=== PATIENT | male | born 1960 | race Caucasian/White ===

== ENCOUNTER 2020-02-29 16:49 | Emergency (ER) | payer BC, OTHER ==
[~2020-02-29 16:49] MED LIST: HYDR-3455 PO; SULF1TAB35 PO
[2020-02-29] MEDS ORDERED: NS IV 1000 ML 1,000 ML IV SCH (16:59)
[2020-02-29] MEDS ORDERED: DIATRIZOATE MEGLUM/SODIUM 37% 120 ML (GASTROGRAFIN) PO ONE (17:00)
[2020-02-29 17:13] LABS: BILIRUBIN,URINE NEGATIVE (NEGATIVE); CLARITY,URINE CLEAR; COLOR,URINE YELLOW; GLUCOSE, URINE (UA) NEGATIVE (NEGATIVE); KETONES,URINE NEGATIVE (NEGATIVE); LEUKOCYTE ESTERASE ,URINE NEGATIVE (NEGATIVE); NITRITE,URINE NEGATIVE (NEGATIVE); PROTEIN,URINE TRACE (NEGATIVE)
[2020-02-29] MEDS ORDERED: fentaNYL INJECTION 100 MCG/2 ML AMP IVP STA (17:19)
[2020-02-29 17:20] LABS: BACTERIA,URINE NEGATIVE /HPF; RBC,URINE RARE /HPF
--- NOTE | 2020-02-29 18:11 | ED Abdominal Pain ---
General Stated Complaint: ABD PAIN History of Present Illness Date Seen by Provider: February 29, 2020 Time Seen by Provider: 17:00 Initial Comments 59-year-old male presents for abdominal pain that began yesterday afternoon. He states he ate breakfast yesterday and then became nauseated having abdominal pain. He did have a bowel movement yesterday morning. He denies passing any additional stool or flatus since then. His stomach has become distended. He saw his primary care provider who was concerned about a bowel obstruction. He denies any history of bowel obstructions or chronic abdominal problems. He has had an umbilical hernia repair, otherwise no abdominal surgeries. He denies any nausea at this time. He has had nothing to eat or drink today. 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 Timing/Duration: 1-2 Days Severity/Quality: Moderate Location: Generalized Abdomen Radiation: No Radiation Associated Symptoms: Denies Symptoms Allergies and Home Medications Allergies Coded Allergies: Penicillins (Verified Allergy, Unknown, HIVES AND TONGUE SWELLED, 07/12/15) Home Medications Ciprofloxacin HCl 500 Mg Tablet, 500 MG PO BID Prescribed by: DHRUV MENDOZA on 02/29/202021 Hydrocodone/Acetaminophen 1 Each Tablet, 1-2 EACH PO PRN Prescribed by: NATI FERNANDEZ on 07/29/15 1041 Metronidazole 500 Mg Tablet, 500 MG PO BID Prescribed by: DHRUV MENDOZA on 02/29/202021 Patient Home Medication List Home Medication List Reviewed: Yes Review of Systems Review of Systems Constitutional: no symptoms reported, see HPI Gastrointestinal: See HPI, Abdomen Distended, Abdominal Pain, Constipated, Poor Appetite, Poor Fluid Intake All Other Systems Reviewed Negative Unless Noted: Yes Past Ggdvfll-Vfogjr-Yvhpcs Hx Past Med/Social Hx: Reviewed Nursing Past Med/Soc Hx Patient Social History Recent Foreign Travel: No Contact w/Someone Who Travel: No Past Medical History Asthma Physical Exam Vital Signs Vital Signs - First Documented 02/29/20 18:26 Temp 36.8 Pulse 77 Resp 16 B/P (MAP) 156/96 (116) Pulse Ox 94 O2 Delivery Room Air Capillary Refill : Height/Weight/BMI Height: 5'11.00" Weight: 201lbs. oz. 91.895348nn; BMI Method: General Appearance: WD/WN, mild distress (secondary to pain) Neck: non-tender, full range of motion, supple, normal inspection Respiratory: chest non-tender, lungs clear, normal breath sounds, other (abdominal pain with deep inspiration) Cardiovascular: normal peripheral pulses, regular rate, rhythm, no edema, no murmur Gastrointestinal: abnormal bowel sounds (Hypoactive to absent BS), distended (firm); No rebound; tenderness; No hernia, No mass; other (Healed umbilical incision. Tympany with percussion) Extremities: normal range of motion, non-tender, normal inspection Neurologic/Psychiatric: no motor/sensory deficits, alert, normal mood/affect, oriented x 3 Skin: normal color, warm/dry Progress/Results/Core Measures Results/Orders Lab Results Laboratory Tests Test 02/29/20 17:07 02/29/20 18:05 Range/Units Urine Color YELLOW Urine Clarity CLEAR Urine pH 6.0 5-9 Urine Specific [place] 1.025 H 1.016-1.022 Urine Protein TRACE H NEGATIVE Urine Glucose (UA) NEGATIVE NEGATIVE Urine Ketones NEGATIVE NEGATIVE Urine Nitrite NEGATIVE NEGATIVE Urine Bilirubin NEGATIVE NEGATIVE Urine Urobilinogen 0.2 < = 1.0 MG/DL Urine Leukocyte Esterase NEGATIVE NEGATIVE Urine RBC (Auto) TRACE-I NEGATIVE Urine RBC RARE /HPF Urine WBC NONE /HPF Urine Squamous Epithelial Cells NONE /HPF Urine Crystals NONE /LPF Urine Bacteria NEGATIVE /HPF Urine Casts NONE /LPF Urine Mucus SMALL H /LPF Urine Culture Indicated NO White Blood Count 15.7 H 4.3-11.0 10^3/uL Red Blood Count 4.89 4.35-5.85 10^6/uL Hemoglobin 15.8 13.3-17.7 G/DL Hematocrit 45 40-54 % Mean Corpuscular Volume 92 80-99 FL Mean Corpuscular Hemoglobin 32 25-34 PG Mean Corpuscular Hemoglobin Concent 35 32-36 G/DL Red Cell Distribution Width 12.7 10.0-14.5 % Platelet Count 292 130-400 10^3/uL Mean Platelet Volume 10.1 7.4-10.4 FL Neutrophils (%) (Auto) 81 H 42-75 % Lymphocytes (%) (Auto) 8 L 12-44 % Monocytes (%) (Auto) 11 0-12 % Eosinophils (%) (Auto) 0 0-10 % Basophils (%) (Auto) 0 0-10 % Neutrophils # (Auto) 12.7 H 1.8-7.8 X 10^3 Lymphocytes # (Auto) 1.2 1.0-4.0 X 10^3 Monocytes # (Auto) 1.8 H 0.0-1.0 X 10^3 Eosinophils # (Auto) 0.0 0.0-0.3 10^3/uL Basophils # (Auto) 0.0 0.0-0.1 10^3/uL Neutrophils % (Manual) 87 % Lymphocytes % (Manual) 9 % Monocytes % (Manual) 3 % Eosinophils % (Manual) 1 % Basophils % (Manual) 0 % Band Neutrophils 0 % Blood Morphology Comment NORMAL Prothrombin Time 13.2 12.2-14.7 SEC INR Comment 1.0 0.8-1.4 Activated Partial Thromboplast Time 30 24-35 SEC Sodium Level 133 L 135-145 MMOL/L Potassium Level 3.9 3.6-5.0 MMOL/L Chloride Level 97 L 98-107 MMOL/L Carbon Dioxide Level 24 21-32 MMOL/L Anion Gap 12 5-14 MMOL/L Blood Urea Nitrogen 10 7-18 MG/DL Creatinine 0.96 0.60-1.30 MG/DL Estimat Glomerular Filtration Rate > 60 BUN/Creatinine Ratio 10 Glucose Level 117 H 70-105 MG/DL Calcium Level 10.1 8.5-10.1 MG/DL Corrected Calcium 9.7 8.5-10.1 MG/DL Magnesium Level 1.9 1.6-2.4 MG/DL Total Bilirubin 0.9 0.1-1.0 MG/DL Aspartate Amino Transf (AST/SGOT) 15 5-34 U/L Alanine Aminotransferase (ALT/SGPT) 34 0-55 U/L Alkaline Phosphatase 68 40-136 U/L C-Reactive Protein High Sensitivity 14.66 H 0.00-0.50 MG/DL Total Protein 8.7 H 6.4-8.2 GM/DL Albumin 4.5 3.2-4.5 GM/DL Lipase 406 H 8-78 U/L My Orders Orders - DHRUV MENDOZA SUPPLY CHAIN ASSISTANT Fentanyl Injection (Sublimaze Injection (02/29/20 17:19) Iohexol Injection (Omnipaque 350 Mg/Ml 1 (02/29/20 18:30) Received Contrast (Hold Metformin- Contr (02/29/20 18:30) Ns (Ivpb) (Sodium Chloride 0.9% Ivpb Bag (02/29/20 18:30) Ciprofloxacin Tablet (Cipro Tablet) (02/29/20 20:12) Metronidazole 500mg/100ml Ivpb (Flagyl 5 (02/29/20 20:15) Ketorolac Injection (Toradol Injection) (02/29/20 20:26) Magnesium Hydroxide Oral Susp (Mom Oral (02/29/20 20:30) Docusate Sodium Capsule (Colace Capsule) (02/29/20 20:33) Rx-Hydrocodone/Apap 5-325 Mg (Rx-Vicodin (02/29/20 20:45) Medications Given in ED Current Medications Medications Dose Ordered Sig/[place] Route Start Time Stop Time Status Last Admin Dose Admin Acetaminophen/ Hydrocodone Bitart 1 ea Q6H PRN PO 02/29/20 20:45 02/29/20 20:48 1 EA Diatrizoate Meglum/ Diatrizoate Sod 120 ml ONCE ONCE PO 02/29/20 17:00 02/29/20 17:02 DC 02/29/20 19:29 20 ML Iohexol 100 ml ONCE ONCE IV 02/29/20 18:30 02/29/20 18:47 DC 02/29/20 19:29 100 ML Magnesium Hydroxide 30 ml ONCE ONCE PO 02/29/20 20:30 02/29/20 20:31 DC 02/29/20 20:48 30 ML Metronidazole 100 ml @ 100 mls/hr ONCE ONCE IV 02/29/20 20:15 02/29/20 21:14 02/29/20 20:20 100 MLS/HR Sodium Chloride 100 ml ONCE ONCE IV 02/29/20 18:30 02/29/20 18:47 DC 02/29/20 19:29 100 ML Vital Signs/I&O 02/29/20 18:26 Temp 36.8 Pulse 77 Resp 16 B/P (MAP) 156/96 (116) Pulse Ox 94 O2 Delivery Room Air Progress Progress Note : Time: 17:00 Progress Note Patient seen and evaluated, will obtain labs and normal saline 1 L per IV, fentanyl 25 g IV for pain and CT abdomen and pelvis with oral contrast. 1750 patient repeat reports the pain is improved. No requests at this time, will have to wait until [address], as he just finished oral contrast. 1830 continues to report pain has improved. Ambulating in room, no requests at this time. [address] results reviewed by myself and Dr. Chatman. Awaiting radiologist's review. 1944 CT results discussed with the patient, he reports passing flatus. Will try ice chips. Will give Cipro by mouth and Flagyl IV for diverticulitis. 2029 patient taking ice chips, no nausea or vomiting. Continues to report less pain in the abdomen. 2099 discharge instructions and return precautions reviewed with the patient. Diagnostic Imaging Diagonstic Imaging: CT Plain Films/CT/US/NM/MRI: abdomen Comments NAME: GUNJAN DUGAN MED REC#: [id number] PT STATUS: REG ER : 1960 PHYSICIAN: ROSE SANCHEZ MD ADMIT DATE: 02/29/20/ER Draft Date of Exam:02/29/20 CT ABDOMEN/PELVIS W PROCEDURE: CT abdomen and pelvis with contrast. TECHNIQUE: Multiple contiguous axial images were obtained through the abdomen and pelvis after administration of intravenous contrast. Auto Exposure Controls were utilized during the CT exam to meet ALARA standards for radiation dose reduction. INDICATION: Abdominal pain. FINDINGS: There is minimal basilar atelectasis at the right lung base. Lung bases otherwise clear. Liver demonstrates low-density compatible with steatosis with a small transient perfusion differences in the inferior right hepatic lobe. There is no hepatic mass or focal abnormality. The portal veins are patent. The gallbladder is nondistended without radiodense gallstones or evidence of biliary dilatation. The spleen demonstrates no focal abnormality. There is no adrenal mass. The kidneys enhance normally and appear nonobstructed. There is abnormal inflammation and stranding demonstrated about the tail of the pancreas. Consider correlation with lipase. This is also however immediately adjacent to the splenic flexure of the colon where there are several small diverticula. This could conceivably reflect minimal diverticulitis. There are no findings of bowel obstruction. Remainder of the colon demonstrates a few uncomplicated diverticula within the sigmoid colon. The appendix is normal. There are no findings of abscess. There is no free fluid. There is no free air. There is no abnormal adenopathy. The urinary bladder is unremarkable. There is fat-containing right inguinal hernia. Aorta normal in caliber. No acute or suspicious osseous abnormality. IMPRESSION: 1. Focal abnormal inflammatory fat stranding is demonstrated within the left upper quadrant, it is along the tail of the pancreas and immediately adjacent to the splenic flexure of the colon where there are a few diverticula. Considerations would include either distal pancreatic tail pancreatitis or possibly mild diverticulitis. 2. The left kidney is nonobstructed and enhances normally. 3. Uncomplicated sigmoid diverticulosis. There is no bowel obstruction. The appendix is normal. 4. No free air, free fluid or abscess. 5. Fat-containing right inguinal hernia. Dictated on workstation # [id number] Dict: 02/29/201937 Trans: 02/29/202006 [facility] [id number] Interpreted by: MARIANGEL LARA MD Electronically signed by: Reviewed: Reviewed by Me, Reviewed/Discussed (with Dr. Chatman) Departure Impression Primary Impression: Pancreatitis Qualified Codes: K85.90 - Acute pancreatitis without necrosis or infection, unspecified Additional Impressions: Diverticulitis of intestine Qualified Codes: K57.32 - Diverticulitis of large intestine without perforation or abscess without bleeding Abdominal pain Qualified Codes: R10.84 - Generalized abdominal pain Disposition: HOME, SELF-CARE Condition: Stable Departure-Patient Inst. Decision time for Depature: 20:15 Referrals: JACK ALVARADO WILLIAM J DO (PCP/Family) Primary Care Physician Patient Instructions: Diverticulitis (DC), Pancreatitis (DC) Add. Discharge Instructions: Clear liquid diet for next 24-48 hours. Use stool softener, one daily. Increase water intake in diet. Take medications, as prescribed. Follow up with Dr. Gonzales, if symptoms are not improving or worsen. Call Dr. Alvarado for follow up and colonoscopy if greater than 5 years, since last one. Return to Emergency Dept for increased abdominal pain, fever greater than 101, new, urgent concerns. Scripts Ciprofloxacin HCl (Ciprofloxacin HCl) 500 Mg Tablet 500 MG PO BID, #14 TAB 0 Refills Prov: DHRUV MENDOZA 02/29/20 Metronidazole (Flagyl) 500 Mg Tablet 500 MG PO BID, #14 TAB 0 Refills Prov: DHRUV MENDOZA 02/29/20 Work/School Note: Work Release Form Date Seen in the Emergency Department: February 29, 2020 Return to Work: March 03, 2020 Restrictions: No Restrictions Copy Copies To 1: NIRAV GONZALES DO Copies To 2: JACK ALVARADO DO DHRUV MENDOZA February 29, 2020 18:11
[2020-02-29 18:12] LABS: BASOPHILS % (AUTO) 0 % (0-10); EOSINOPHILS % (AUTO) 0 % (0-10); HEMATOCRIT 45 % (40-54); HEMOGLOBIN 15.8 G/DL (13.3-17.7); LYMPHOCYTES # (AUTO) 1.2 X 10^3 (1.0-4.0); LYMPHOCYTES % (AUTO) 8 % (12-44); MEAN CORPUSCULAR HEMOGLOBIN 32 PG (25-34); MEAN CORPUSCULAR HGB CONC 35 G/DL (32-36); MEAN CORPUSCULAR VOLUME 92 FL (80-99); MEAN PLATELET VOLUME 10.1 FL (7.4-10.4); MONOCYTES # (AUTO) 1.8 X 10^3 (0.0-1.0); MONOCYTES % (AUTO) 11 % (0-12); NEUTROPHILS # (AUTO) 12.7 X 10^3 (1.8-7.8); NEUTROPHILS % (AUTO) 81 % (42-75); PLATELET COUNT 292 10^3/uL (130-400); RED CELL DISTRIBUTION WIDTH 12.7 % (10.0-14.5); WHITE BLOOD COUNT 15.7 10^3/uL (4.3-11.0)
[2020-02-29 18:23] LABS: ALBUMIN 4.5 GM/DL (3.2-4.5); CHLORIDE 97 MMOL/L (98-107); POTASSIUM 3.9 MMOL/L (3.6-5.0); SODIUM 133 MMOL/L (135-145)
[2020-02-29 18:24] LABS: CALCIUM 10.1 MG/DL (8.5-10.1)
[2020-02-29 18:25] LABS: GLUCOSE 117 MG/DL (70-105); TOTAL PROTEIN 8.7 GM/DL (6.4-8.2)
[2020-02-29 18:26] LABS: CARBON DIOXIDE 24 MMOL/L (21-32); PROTHROMBIN TIME PATIENT 13.2 SEC (12.2-14.7)
[2020-02-29 18:27] LABS: BILIRUBIN,TOTAL 0.9 MG/DL (0.1-1.0)
[2020-02-29 18:29] LABS: ALKALINE PHOSPHATASE 68 U/L (40-136); CREATININE SERUM 0.96 MG/DL (0.60-1.30); GFR ESTIMATED > 60
[2020-02-29 18:30] LABS: BAND NEUTROPHILS 0 %; BASOPHILS % (MANUAL) 0 %; BUN/CREATININE RATIO 10; EOSINOPHILS % (MANUAL) 1 %; LYMPHOCYTES % (MANUAL) 9 %; MONOCYTES % (MANUAL) 3 %; NEUTROPHILS % (MANUAL) 87 %; RBC MORPH NORMAL
[2020-02-29] MEDS ORDERED: IOHEXOL 350 MG/ML 100 ML (OMNIPAQUE 350) VIAL IV ONE (18:30)
[2020-02-29] MEDS ORDERED: NS 100 ML (IVPB) BAG IV ONE (18:30)
[2020-02-29] MEDS ORDERED: HOLD METFORMIN - RECEIVED CONTRAST 20 ML VIAL IV SCH (18:30)
[2020-02-29 18:32] LABS: ALANINE AMINOTRANSFERASE 34 U/L (0-55); MAGNESIUM 1.9 MG/DL (1.6-2.4)
[2020-02-29 18:33] LABS: LIPASE 406 U/L (8-78)
--- OUTSIDE RECORDS SUMMARY | 2020-02-29 18:36 | XMS REPORT ---
Author Author Cliff KRUSE Organization [facility] Address [address] [place] [address] Care Team Providers Care Coverage Specialist Name Role Phone TIFFANIE KRUSE Unavailable PROBLEMS Type Condition ICD9-CM Code CIJ56-BG Code Onset Dates Condition S tatus SNOMED Code Problem Inguinal hernia without ment ion of obstruction or gangrene, unilateral or unspecified, (not specified as recurrent) 550.90 Active 036050953 Problem Dysfunction of Eustachian tube 381.81 Active 95329938 Problem Other specified examination V72.85 Ac tive 937698060 Problem Need for prophylactic vaccination and inoculation, Influen za V04.81 Active 426105033 Problem Elevated blood pressure reading without diagnosi s of hypertension 796.2 Active [id number] ALLERGIES No Information ENCOUNTERS Encounter Location Date Diagnosis [facility] [address] [facility] [id number] [address] [place] [phone] Jan, [facility] [address] [facility] [id number] [address] [place] [phone] Jan, [facility] [address] [facility] [id number] [address] [place] [phone] Oct, [facility] [address] [facility] [id number] [address] [place] [phone] Oct, [facility] [address] [facility] [id number] [address] [place] [phone] Aug, [facility] [address] [facility] [id number] [address] [place] [phone] Jul, [facility] [address] [facility] [id number] [address] [place] [phone] Jul, [facility] [address] [facility] [id number] [address] [place] [phone] Jul, [facility] [address] [facility] [id number] [address] [place] [phone] Jun, [facility] [address] [facility] [id number] [address] [place] [phone] Jun, [facility] [address] [facility] [id number] [address] [place] [phone] Apr, [facility] [address] [facility] [id number] [address] [place] [phone] Apr, [facility] [address] [facility] [id number] [address] [place] [phone] Jul, IMMUNIZATIONS No Known Immunizations SOCIAL HISTORY Never Assessed REASON FOR VISIT PLAN OF CARE VITAL SIGNS MEDICATIONS Unknown Medications RESULTS No Results PROCEDURES No Known procedures INSTRUCTIONS MEDICATIONS ADMINISTERED No Known Medications
--- OUTSIDE RECORDS SUMMARY | 2020-02-29 18:36 | XMS REPORT ---
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 [employer] [facility] Address [address] [address] Care Team Providers Care Sales Engagement Executive Name Role Phone Unavailable Unavailable Unavailable Unavailable Allergies No Information Medications No Information Problems No Information Procedures No Information Immunizations No Information Results Test Name Value Interpretation Reference Range Date Time Fa cility (Normalized) (Normalized) (Medline Reference) laboratory on 2020-02-29 Bacteria LM Ql Negative (no code) 02-29-2020 PENDING LOC ATION (Urine sed) 13:07-0400 [facility] (19997) Bilirubin Ql (U) Negative (no code) 02-29-2020 PENDING L OCATION 13:07-0400 [facility] (42019) Casts LM Ql NONE (no code) 02-29-2020 PENDING LOCATI ON (Urine sed) 13:07-0400 [facility] (01063) Clarity (U) CLEAR (no code) 02-29-2020 PENDING LOCATI ON 13:07-0400 [facility] (82945) Color (U) YELLOW (no code) 02-29-2020 PENDING LOCATI ON 13:07-0400 [facility] (28806) Crystals LM Ql NONE (no code) 02-29-2020 PENDING LOC ATION (Urine sed) 13:07-0400 [facility] (45740) Epithelial NONE (no code) 02-29-2020 PENDING LOCATI ON cells.squamous 13:07-0400 [facility] (35771) LM Ql (Urine sed) Glucose Auto Negative (no code) 02-29-2020 PENDING LOCAT ION test strip Ql 13:07-0400 [facility] (72287) (U) Ketones Auto Negative (no code) 02-29-2020 PENDING LOCAT ION test strip Ql 13:07-0400 [facility] (77481) (U) Leukocyte Negative (no code) 02-29-2020 PENDING LOCATI ON esterase Test 13:07-0400 [facility] (03939) strip Ql (U) Mucus Ql (Urine SMALL (A) 02-29-2020 PENDING LO CATION sed) 13:07-0400 [facility] (02448) Nitrite Ql (U) Negative (no code) 02-29-2020 PENDING LOC ATION 13:07-0400 [facility] (41864) pH (U) 6.0 [pH] (no code) 4.6 - 8 [pH] 02-29-2020 PENDING L OCATION 13:07-0400 [facility] (48516) Protein Ql (U) TRACE (A) 02-29-2020 PENDING LOC ATION 13:07-0400 [facility] (84193) RBC LM.HPF RARE (no code) 02-29-2020 PENDING LOCATI ON (Urine sed) 13:07-0400 [facility] (88810) [#/Area] RBC Ql (U) TRACE-I (no code) 02-29-2020 PENDING LOCATI ON 13:07-0400 [facility] (90208) Specific gravity 1.025 (A) 02-29-2020 PENDING L OCATION (U) [Rel 13:07-0400 [facility] (91022) density] Urinalysis NO (no code) 02-29-2020 PENDING LOCATI ON complete W 13:07-0400 [facility] (36414) Reflex Culture panel - Urine Urobilinogen (U) 0.2 mg/dL (no code) 02-29-2020 PENDING L OCATION [Mass/Vol] 13:07-0400 [facility] (01130) WBC LM.HPF NONE (no code) 02-29-2020 PENDING LOCATI ON (Urine sed) 13:07-0400 [facility] (92961) [#/Area] Vital Signs No Information Interventions No Information Plan of Treatment No Information Goals No Information Social History No Information Functional Status No Information Mental Status No Information Encounters No Information Medical Equipment No Information Payers No Information Additional Source Comments This clinical document has been generated using [employer] software that has been certified by the Office of the National Coordinator for Health Information Technology (ONC 15.99.04.3023.Diam.31.00.0.968492) and the National Committee for Hotel Services Supervisor (NCQA, as an eMeasure certified technology). FOR RECORDS PERTAINING TO PATIENTS WHO ARE OR HAVE BEEN ENROLLED IN A CHEMICAL D EPENDENCY/SUBSTANCE ABUSE PROGRAM, SOME INFORMATION MAY BE OMITTED. This clinica l summary was aggregated from multiple sources. Caution should be exercised in using it in the provision of clinical care. This summary normalizes information from multiple sources, and as a consequence, information in this document may ma terially change the coding, format and clinical context of patient data. In susi tion, data may be omitted in some cases. CLINICAL DECISIONS SHOULD BE BASED ON T HE PRIMARY CLINICAL RECORDS. [employer] [facility]. provides no warranty or guara ntee of the accuracy or completeness of information in this document.The followi information is based on time limited clinical information
--- NOTE | 2020-02-29 20:08 | Diagnostic Imaging Report ---
PROCEDURE: CT abdomen and pelvis with contrast. TECHNIQUE: Multiple contiguous axial images were obtained through the abdomen and pelvis after administration of intravenous contrast. Auto Exposure Controls were utilized during the CT exam to meet ALARA standards for radiation dose reduction. INDICATION: Abdominal pain. FINDINGS: There is minimal basilar atelectasis at the right lung base. Lung bases otherwise clear. Liver demonstrates low-density compatible with steatosis with a small transient perfusion differences in the inferior right hepatic lobe. There is no hepatic mass or focal abnormality. The portal veins are patent. The gallbladder is nondistended without radiodense gallstones or evidence of biliary dilatation. The spleen demonstrates no focal abnormality. There is no adrenal mass. The kidneys enhance normally and appear nonobstructed. There is abnormal inflammation and stranding demonstrated about the tail of the pancreas. Consider correlation with lipase. This is also however immediately adjacent to the splenic flexure of the colon where there are several small diverticula. This could conceivably reflect minimal diverticulitis. There are no findings of bowel obstruction. Remainder of the colon demonstrates a few uncomplicated diverticula within the sigmoid colon. The appendix is normal. There are no findings of abscess. There is no free fluid. There is no free air. There is no abnormal adenopathy. The urinary bladder is unremarkable. There is fat-containing right inguinal hernia. Aorta normal in caliber. No acute or suspicious osseous abnormality. IMPRESSION: 1. Focal abnormal inflammatory fat stranding is demonstrated within the left upper quadrant. It is along the tail of the pancreas and immediately adjacent to the splenic flexure of the colon where there are a few diverticula. Considerations would include either distal pancreatic tail pancreatitis or possibly mild diverticulitis. 2. The left kidney is nonobstructed and enhances normally. 3. Uncomplicated sigmoid diverticulosis. There is no bowel obstruction. The appendix is normal. 4. No free air, free fluid or abscess. 5. Fat-containing right inguinal hernia. Dictated by: Dictated on workstation # [id number]
[2020-02-29] MEDS ORDERED: CIPROFLOXACIN 500 MG (CIPRO) TABLET PO STA (20:12)
[2020-02-29] MEDS ORDERED: metroNIDAZOLE 500MG/100ML IVPB 100 ML IV ONE (20:15)
[2020-02-29] MEDS ORDERED: CIPR500T4 PO (20:22)
[2020-02-29] MEDS ORDERED: METR500T PO (20:22)
[2020-02-29] MEDS ORDERED: KETOROLAC 30 MG/ML VIAL IVP STA (20:26)
[2020-02-29] MEDS ORDERED: MILK OF MAGNESIA 400 MG/5 ML 30 ML UDC PO ONE (20:30)
[2020-02-29] MEDS ORDERED: DOCUSATE SODIUM 100 MG (COLACE) CAP PO STA (20:33)
[2020-02-29] MEDS ORDERED: RX-HYDROCODONE/APAP 5/325 MG #4 TAB PK PO PRN (20:45)
[2020-02-29 21:20] VITALS: BP 144/81
== END 2020-02-29 21:20 | disposition home or self-care (01) ==
LOC: EDUNIT# 16:49 → ER 16:51
DX: K57.32 Diverticulitis of large intestine without perforation or abscess without bleeding (principal); K85.90 Acute pancreatitis without necrosis or infection, unspecified; Z88.0 Allergy status to penicillin
CPT/HCPCS: 36415; 74177; 80053; 81000; 83690; 83735; 85007; 85027; 85610; 85730; 86141; 96361; 96365; 96375

== ENCOUNTER 2020-04-26 05:34 | Outpatient (RCR) | payer OTHER ==
[~2020-04-26] VITALS: Ht 180 cm; Wt 96.3 kg
[~2020-04-26 05:34] MED LIST changes: +CIPR500T4 PO; +METR500T PO
== END 2020-04-26 10:49 | disposition home or self-care (01) ==
LOC: PREOP 05:34
PROVIDERS: ATTEND Internal Medicine
DX: Z01.812 Encounter for preprocedural laboratory examination (principal); Z20.828 Contact with and (suspected) exposure to other viral communicable diseases; Z12.11 Encounter for screening for malignant neoplasm of colon
CPT/HCPCS: 87635

== ENCOUNTER → 2020-12-29 | Outpatient (CLI) | payer BC, OTHER ==
[~2020-12-29] MED LIST changes: -CIPR500T4 PO; +CIPR500T5 PO
--- NOTE | 2020-12-29 15:37 | Diagnostic Imaging Report ---
INDICATION: HAND PAIN, ATTN THIRD MCP JOINT TECHNIQUE: Three views of the left hand. CORRELATION STUDY: None FINDINGS: There is normal alignment and appearance of the osseous structures of the hand. Very mild degenerative changes through the interphalangeal joints. The joint spaces are otherwise maintained. There is no acute fracture. Soft tissues are unremarkable. IMPRESSION: 1. Negative for acute bony abnormality of the hand. Dictated by: Dictated on workstation # [id number]
== END ==
LOC: RAD 14:55
PROVIDERS: ATTEND Internal Medicine
DX: M79.642 Pain in left hand (principal); K63.5 Polyp of colon; R76.9 Abnormal immunological finding in serum, unspecified
CPT/HCPCS: 73130